=== PATIENT | female | born 1985 | race Caucasian/White ===

== ENCOUNTER 2019-12-29 19:46 | Emergency (ER) | payer OTHER, SELFPAY ==
[2019-12-29 19:54] VITALS: BP 110/72; PULSE 77; RESP 20; TEMP 36.8; O2SAT 98
--- NOTE | 2019-12-29 19:54 | ED.SKABFB ---
HPI - Skin/Abscess/Foreign Bdy General Chief complaint: Skin/Abscess/Foreign Body Stated complaint: head lice check Time Seen by Provider: 12/29/19 19:54 Source: patient and RN notes reviewed History of Present Illness HPI narrative: Patient is a 34-year-old female presents the urgent care with complaints of treatment for head lice. Patient states that her son was diagnosed by his media production manager but she was not given enough to treat her other child as well as herself. Patient states that she has now been itching and noticed notable lacy around the waistline and upper thighs. Patient states she has not seen notable lice in the hair but believes she needs to be treated for both. Patient states she believes her son came in contact with that approximately 2 weeks ago. No other acute complaints. No acute distress noted. Patient read the plan of care. Related Data Allergies Allergy/AdvReac Type Severity Reaction Status Date / Time No Known Allergies Allergy Verified 12/29/19 20:03 Review of Systems Review of Systems: Narrative: CONSTITUTIONAL: Denies fever, chills, or sweats. EYES: Denies visual changes, redness, or discharge. ENT: Denies rhinorrhea, congestion, sore throat, or otalgia. CARDIOVASCULAR: Denies chest pain, palpitations, or edema. RESPIRATORY: Denies cough or dyspnea. GASTROINTESTINAL: Denies abdominal pain, nausea, vomiting, or diarrhea. GENITOURINARY: Denies dysuria or hematuria. SKIN: Reports of itchy rash to upper thighs, head, and waistline MUSCULOSKELETAL: Denies back pain, joint pain, or myalgia. NEUROLOGIC: Denies headache, numbness, or weakness. All other systems reviewed are negative, except as documented in HPI. PMFSH Comments At the time of my signature, I reviewed and agree with the nursing past medical, surgical, social, and family history. There is no relevant family history pertinent to the patient complaint. Exam Narrative: Exam Narrative: GENERAL: This is a well-nourished, well-developed patient, in no apparent distress. HEAD: normocephalic, atraumatic. EYES: PERRL. Sclera clear/white. Vision is grossly intact. EARS: External ears normal NOSE: External nose normal with no obvious nasal discharge THROAT: Mucous membranes moist, posterior pharynx clear. NECK: Neck supple CARDIOVASCULAR: Regular rate and rhythm SKIN: Scattered linear erythemic tracks around the waistline and thighs. Warm, intact with no suspicious lesions or rash, good texture and turgor. NEURO: awake, alert, and oriented to person, place and time. There were no obvious focal neurologic abnormalities. EXTREMITIES: No clubbing, cyanosis, or edema. Course Vital Signs Vital signs: Vital Signs Temperature 98.2 F 12/29/19 19:54 Pulse Rate 77 12/29/19 19:54 Respiratory Rate 20 12/29/19 19:54 Blood Pressure 110/72 12/29/19 19:54 Pulse Oximetry 98 12/29/19 19:54 Temperature 98.2 F 12/29/19 19:54 Pulse Rate 77 12/29/19 19:54 Respiratory Rate 20 12/29/19 19:54 Blood Pressure 110/72 12/29/19 19:54 Pulse Oximetry 98 12/29/19 19:54 Reviewed MDM - Skin/Abscess/Foreign Bdy MDM Narrative Medical decision making narrative: Advised the patient to use prescription medications as directed. Each person in the home should get their own prescription for the medication. Patient should call children's media production manager in the morning. Follow-up with PCP/media production manager for your children as directed. Plan to the patient that she appears to be more symptomatic for scabies giving the current rash surrounding the waistline and the upper thigh tracts. However, will treat to cover with permethrin. Advised the patient to have all members in the household put on the medication and she was given strict direction on how to rid of the scabies as well as lice. Patient is aware and states that they are currently in the process of moving and everything is been placed in black trash bags and everything has been thrown out or cleane
--- NOTE | 2019-12-31 14:58 | PC.NURSE ---
noted pt phoned in and stated she was seen here 12/28 and treated for possible head lice as she requested. reports she was also informed she had scabies but received no prescription for treatment. requests prescription for scabies. noted provider aware and agreeable. pt aware prescriptions sent to [facility].
== END 2019-12-29 20:08 | disposition home or self-care (01) ==
PROVIDERS: Emergency Provider Nurse Practitioner Family
DX: B85.0 Pediculosis due to Pediculus humanus capitis (principal)
CPT/HCPCS: 99213; G0463